=== PATIENT | male | born 1985 | race Caucasian/White ===

== ENCOUNTER 2024-05-31 15:14 | Inpatient (IN) | payer OTHER, MEDICAID, SELFPAY ==
[2024-05-31] VITALS (18 sets, daily range): BP systolic 131–157; BP diastolic 85–104; PULSE 86–115; TEMP 36.6–37.1; O2SAT 95–100; BMI 23.7; BMI 24.0
--- NOTE | 2024-05-31 15:21 | CT_ITS ---
[address] [address] Patient Name: RIOS DANIELSON MRN: [id number] date: 1985 Sex: M Assigned Patient Location: ER Current Patient Location: [facility] Accession/Order Number: [id number] Exam Date: 05/31/2024 15:35 Report Date: 05/31/2024 16:07 At the request of: NATHAN ARREAGA Procedure: CT soft tissue neck w con EXAMINATION: CT soft tissue neck w con HISTORY: throat swelling COMPARISON: No relevant comparison available. TECHNIQUE: Axial, Coronal, and Sagittal CT images created with IV contrast. Dose reduction techniques were achieved by using automated exposure control and/or adjustment of mA and/or kV according to patient size and/or use of iterative reconstruction technique. FINDINGS: NASOPHARYNX: No asymmetry of the fossae of Rosenmuller and torus tubarius. ORAL CAVITY: No visible mass. OROPHARYNX: No asymmetry of the facial and lingual tonsils. HYPOPHARYNX: No mass or other visible lesion. LARYNX: No mass or asymmetry of the vocal cords. SINUSES: No significant fluid or mucosal thickening. NECK GLANDS: No visible abnormality of the parotid, submandibular, and thyroid glands. LYMPH NODES: No pathological-appearing or enlarged lymph nodes. VASCULATURE: No suspicious abnormality. BONES: Reversal of normal lordotic curvature of the cervical spine. Mild degenerative disc disease C6-C7, C7-T1. OTHER: Large amount of free air within the mediastinum,, anterior neck, and extending to the skull base. CT/CT soft tissue neck w con IMPRESSION: 1. Marked subcutaneous emphysema within upper mediastinum and throughout the neck without appreciable tear or perforation of the visible trachea, larynx, and esophagus. Electronically authenticated by: BRANDI CABALLERO Date: 05/31/2024 16:07
--- NOTE | 2024-05-31 15:26 | ED.GENADUL1 ---
HPI HPI - General Adult General Chief complaint: Upper Respiratory Infection Stated complaint: Difficulty Swallowing Time Seen by Provider: 05/31/24 15:16 Source: patient Mode of arrival: walk-in Limitations: no limitations History of Present Illness HPI narrative: Patient is a 39-year-old male who presents to the emergency department for several hour history of throat swelling and pain. He states he feels his throat is swollen, his voice is muffled and he has pain with swallowing. He stopped to get a cup of coffee from the [employer] prior to arrival and was drinking this when the triage nurse got him from the [employer]. He states he was just at the [facility] emergency department and they did not do any testing or treatment for him. He states his symptoms began when he was chewing on his finger and vaping and he states that his primary concern is that he has developed an infection in his throat in the last hour from chewing on his finger as he was playing video games and he does not clean the controllers. He has not had any fevers or vomiting. No other upper respiratory symptoms. No medications taken prior to arrival. Related Data Home Medications ?Medication ?Instructions ?Recorded ?Confirmed No Known Home Medications 05/31/24 05/31/24 Allergies Allergy/AdvReac Type Severity Reaction Status Date / Time No Known Drug Allergies Allergy Verified 05/31/24 15:23 Opioid HPI Opioid Management Most Recent Opioid Data: No Data to Display Review of Systems ROS Constitutional Denies: fever or chills Ears, nose, mouth, and throat Reports: throat pain and difficulty swallowing; Denies: nasal congestion Respiratory Denies: shortness of breath or cough Gastrointestinal Denies: nausea or vomiting Integumentary/Breast Denies: rash Neurological Denies: headache, numbness in extremities or weakness in extremities Hematologic/Lymphatic Denies: easy bruising or easy bleeding Exam Narrative Exam Narrative: Gen.: Awake, alert, in no distress Head: Normocephalic, atraumatic ENT: Moist mucous membranes, bilateral TMs are clear, airways widely open and patent with uvula midline. No trismus or drooling. No redness or swelling under the tongue. No tonsillar edema or exudate. Patient with clear speech, tolerate his own secretions and saliva without difficulty. Respiratory: No respiratory distress Extremities: Moves extremities equally Psych: Normal mood and affect Neuro: No focal neuro deficit Skin: Warm, dry, intact Constitutional Vital Signs, click to edit/add: Last Vital Signs Temp 97.8 F 05/31/24 15:20 Pulse 86 05/31/24 16:21 Resp 18 05/31/24 16:21 BP 157/99 H 05/31/24 16:21 Pulse Ox 98 05/31/24 16:21 Course Vital Signs Vital signs: Vital Signs Temperature 97.8 F 05/31/24 15:20 Pulse Rate 115 H 05/31/24 15:20 Respiratory Rate 18 05/31/24 15:20 Blood Pressure 136/104 H 05/31/24 15:20 Pulse Oximetry 97 05/31/24 15:20 Temperature 97.8 F 05/31/24 15:20 Pulse Rate 86 05/31/24 16:21 Respiratory Rate 18 05/31/24 16:21 Blood Pressure 157/99 H 05/31/24 16:21 Pulse Oximetry 98 05/31/24 16:21 Medical Decision Making MDM Narrative Medical decision making narrative: This was sent for CT of the soft tissue of the neck, treated with Decadron for throat pain, he declined Toradol. Labs show white blood cell count 12.5, the remainder of the labs are within normal limits. CT of the soft tissue of the neck shows significant subcutaneous emphysema extending throughout the neck, patient was sent for an additional CT scan of the chest. This was reviewed by myself and pulmonology, Dr. Morton, and at this time we suspect that the patient may have popped a bleb from vape use. Recommend admitting the patient to ICU to the hospitalist, discussed with Dr. Horta and he accepted the patient for admission. Patient placed on oxygen at 6 L, admitted to ICU for further evaluation and treatment. Vital signs are stable at time of admission. SUPERVISED APC VISIT, PHYSICIAN ATTESTATION: Based on the medical record the care appears appropriate. ? Medical Records Medical records reviewed: Yes I reviewed the patient's medical records Lab Data Lab results reviewed: Yes I reviewed the patient's lab results Labs: Lab Results 05/31/24 05/31/24 Range/Units 15:31 15:32 WBC 12.5 H (4.0-11.0) 10^3/uL RBC 5.35 (4.70-6.10) 10^6/uL Hgb 16.5 (14.0-18.0) g/dL Hct 46.1 (42.0-54.0) % MCV 86.2 (80.0-94.0) fL MCH 30.8 (25.9-34.0) pg MCHC 35.8 H (29.9-35.2) g/dL RDW 12.0 (11.0-15.0) % Plt Count 292 (150-450) 10^3/uL MPV 10.7 (9.5-13.5) fL Neut % (Auto) 76.0 H (43.0-75.0) % Lymph % (Auto) 14.4 L (20.5-60.0) % [place] % (Auto) 8.7 (1.7-12.0) % Eos % (Auto) 0.1 L (0.9-7.0) % Baso % (Auto) 0.5 (0.2-2.0) % Neut # (Auto) 9.5 H (1.4-6.5) 10^3/uL Lymph # (Auto) 1.8 (1.2-3.8) 10^3/uL [place] # (Auto) 1.1 H (0.3-0.8) 10^3/uL Eos # (Auto) 0.0 (0.0-0.7) 10^3/uL Baso # (Auto) 0.1 (0.0-0.1) 10^3/uL Abs Immat Gran (auto) 0.04 H (0.00-0.03) 10^3/uL Imm/Tot Granulo (auto) 0.3 (0.0-0.5) % PT 11.4 (9.0-11.6) sec INR 1.08 Sodium 140 (136-145) mmol/L Potassium 4.1 (3.5-5.1) mmol/L Chloride 98 (98-107) mmol/L Carbon Dioxide 28.0 (21.0-32.0) mmol/L Anion Gap 18.1 BUN 5.0 L (7.0-18.0) mg/dL Creatinine 1.05 (0.70-1.30) mg/dL Est GFR ( Amer) >60 (>=60) Est GFR (Non-Af Amer) >60 (>=60) BUN/Creatinine Ratio 4.8 Glucose 109 H (74-106) mg/dL Calcium 9.7 (8.5-10.1) mg/dL Total Bilirubin 1.1 H (0.2-1.0) mg/dL AST 20 (15-37) U/L ALT 29 (16-63) U/L Alkaline Phosphatase 102 (46-116) U/L Total Protein 7.8 (6.4-8.2) g/dL Albumin 4.6 (3.4-5.0) g/dL Globulin 3.2 g/dL Albumin/Globulin Ratio 1.4 Streptococcus Screen Negative Imaging Data ct neck: Attestation: I have reviewed the pertinent imaging results. Radiologist's impression: ITS Impressions Soft Tissue Neck CT 05/31/24 15:21 IMPRESSION: 1. Marked subcutaneous emphysema within upper mediastinum and throughout the neck without appreciable tear or perforation of the visible trachea, larynx, and esophagus. Electronically authenticated by: BRANDI CABALLERO Date: 05/31/2024 16:[address] 05/31/24 16:10 IMPRESSION: 1. Large amount of soft tissue emphysema in the neck and pneumomediastinum, correlate clinically. 2. No other acute abnormalities in the chest. Electronically authenticated by: CASANDRA CISSE Date: 05/31/2024 17:02 Discharge Plan Discharge Chief Complaint: Upper Respiratory Infection Time of Disposition Decision: 17:28 Prescriptions / Home Meds: No Action No Known Home Medications Print Language: Slovak
[2024-05-31 15:38] LABS: Basophils Absolute Auto 0.1 10^3/uL (0.0-0.1); Basophils Percent Auto 0.5 % (0.2-2.0); Eosinophils Percent Auto 0.1 % (0.9-7.0); Hematocrit 46.1 % (42.0-54.0); Hemoglobin 16.5 g/dL (14.0-18.0); Immature Granulocytes Abs Auto 0.04 10^3/uL (0.00-0.03); Immature Granulocytes Pct Auto 0.3 % (0.0-0.5); Lymphocytes Absolute Auto 1.8 10^3/uL (1.2-3.8); Lymphocytes Percent Auto 14.4 % (20.5-60.0); Mean Corpuscular HGB Conc 35.8 g/dL (29.9-35.2); Mean Corpuscular Hemoglobin 30.8 pg (25.9-34.0); Mean Corpuscular Volume 86.2 fL (80.0-94.0); Mean Platelet Volume 10.7 fL (9.5-13.5); Monocytes Absolute Auto 1.1 10^3/uL (0.3-0.8); Monocytes Percent Auto 8.7 % (1.7-12.0); Neutrophils Absolute Auto 9.5 10^3/uL (1.4-6.5); Platelet Count 292 10^3/uL (150-450); Red Blood Count 5.35 10^6/uL (4.70-6.10); White Blood Count 12.5 10^3/uL (4.0-11.0)
[2024-05-31 15:48] LABS: Internal Control Within Normal Limits; Strep A Antigen Screen Negative
[2024-05-31] MEDS: DEXAMETHASONE SOD PHOS 10 MG/ML VIAL IV (15:49)
--- NOTE | 2024-05-31 16:10 | CT_ITS ---
[address] [address] Patient Name: RIOS DANIELSON MRN: [id number] date: 1985 Sex: M Assigned Patient Location: ER Current Patient Location: Accession/Order Number: [id number] Exam Date: 05/31/2024 16:32 Report Date: 05/31/2024 17:02 At the request of: NATHAN ARREAGA Procedure: CT chest wo con EXAM: CT scan of the chest without contrast. Dose reduction technique used: Automated exposure control and/or adjustment of the mA and/or kV according to patient size and/or use of iterative reconstruction technique. REASON FOR EXAM: subq emphysema COMPARISON: CT scan of the neck from today FINDINGS: Large amount soft tissue emphysema neck and pneumomediastinum. No acute airspace opacities. No pneumothorax. No pleural effusion. No acute fractures. No concerning pulmonary nodules. No definite lymphadenopathy in the chest. No definite coronary atherosclerotic calcifications. Old sternal fracture. Remainder unremarkable. CT/CT chest wo con IMPRESSION: 1. Large amount of soft tissue emphysema in the neck and pneumomediastinum, correlate clinically. 2. No other acute abnormalities in the chest. Electronically authenticated by: CASANDRA CISSE Date: 05/31/2024 17:02
[2024-05-31 16:33] LABS: INR 1.08; Prothrombin Time 11.4 sec (9.0-11.6)
[2024-05-31 16:36] LABS: Alanine Aminotransferase 29 U/L (16-63); Albumin Globulin Ratio 1.4; Albumin Level 4.6 g/dL (3.4-5.0); Alkaline Phosphatase 102 U/L (46-116); Anion Gap 18.1; Aspartate Amino Transferase 20 U/L (15-37); BUN Creatinine Ratio 4.8; Bilirubin Total 1.1 mg/dL (0.2-1.0); Calcium 9.7 mg/dL (8.5-10.1); Chloride 98 mmol/L (98-107); Estimated GFR (African America >60 (>=60); Estimated GFR (Non-African Ame >60 (>=60); Globulin 3.2 g/dL; Glucose 109 mg/dL (74-106); Potassium 4.1 mmol/L (3.5-5.1); Sodium 140 mmol/L (136-145); Total Protein 7.8 g/dL (6.4-8.2)
--- NOTE | 2024-05-31 17:41 | PM.PLCN ---
History of Present Illness History of Present Illness Consult date: 05/31/24 Requesting physician: Chay Horta Reason for consult: other (Pneumomediastinum) Narrative: 39yo male presents to the emergency room with fullness in his neck. The initial history began after he said he experienced the neck swelling and pain after playing video game chewed on his thumb. However on further investigation, he admits that he was attempting to smoke an electronic cigarette, but it was empty. He set the dial to the strongest setting and inhaled deeply, it was at this time he experienced his symptoms. He initially went to [facility] for evaluation, and he claims no workup was done. He then came to [facility] for evaluation. A neck CT was obtained which showed a large amount of free air. This was followed up by a chest CT which noted marked pneumomediastinum. He denies any prior history of pneumothorax. There is no family history of spontaneous pneumothoraces. His grandma has emphysema. He has no personal history of asthma or COPD. He had a longstanding history of cigarette smoking. He states he is attempting to transition over to vaping, though he did smoke a pack of cigarettes yesterday. He smokes marijuana daily. Denies any crack cocaine. Review of Systems ROS Status of ROS 10 or more systems reviewed and unremarkable except as noted in history and below Ears, nose, mouth, and throat Reports: throat swelling Meds Home Medications and Allergies Home Medications ?Medication ?Instructions ?Recorded ?Confirmed ?Type No Known Home Medications 05/31/24 05/31/24 History Allergies Allergy/AdvReac Type Severity Reaction Status Date / Time No Known Drug Allergies Allergy Verified 05/31/24 15:23 Exam Constitutional Vital Signs, click to edit/add: Last Vital Signs Temp 97.8 F 05/31/24 15:20 Pulse 98 H 05/31/24 17:28 Resp 18 05/31/24 17:28 BP 132/93 H 05/31/24 17:28 Pulse Ox 100 05/31/24 17:28 O2 Del Method Nasal Cannula 05/31/24 17:28 O2 Flow Rate 6 05/31/24 17:28 Documenting provider has reviewed patient's vital signs: yes Common normals: no apparent distress and average body habitus General appearance: cooperative and comfortable; not in distress [facility] Common normals: normocephalic Mouth: oral and palatal mucosa normal Neck & C-Spine General: trachea midline, tenderness and other (mild subcutaneous emphysema palpated) Chest Chest: crepitus and tenderness Chest images (male): 1. Tenderness, mild subcutaneous emphysema palpated Respiratory Common normals: normal respiratory effort and no use of accessory muscles Effort & inspection: no respiratory distress Auscultation: diminished lung sounds bilateral throughout; no crackles, no rhonchi and no wheezes Cardio Common normals: no JVD, regular rate and regular rhythm GI Inspection: normal to inspection Extremity Common normals: normal to inspection Neuro Common normals: oriented x3 Psych Speech: normal speech Attention/concentration: attention grossly intact Insight: fair (Discussed smoking/marijuana & pneumothorax risk - I'm not giving that up! ) Results Laboratory Findings ABG, PT/INR, D-dimer: PT/INR, D-dimer PT 11.4 sec (9.0-11.6) 05/31/24 15:31 INR 1.08 05/31/24 15:31 Abnormal lab findings: Abnormal Labs 05/31/24 15:31 WBC 12.5 H MCHC 35.8 H Neut % (Auto) 76.0 H Lymph % (Auto) 14.4 L Eos % (Auto) 0.1 L Neut # (Auto) 9.5 H [place] # (Auto) 1.1 H Abs Immat Gran (auto) 0.04 H BUN 5.0 L Glucose 109 H Total Bilirubin 1.[address] scan - chest: report reviewed Additional studies: Neck CT 05/31/2024: Marked subcutaneous emphysema within upper mediastinum and throughout the neck without appreciable tear or perforation of the visible trachea, larynx, and esophagus. Chest CT 05/31/2024: Large amount of soft tissue emphysema in the neck and pneumomediastinum Assessment and Plan Assessment and Plan (1) Pneumomediastinum: Assessment and Plan: Pneumomediastinum noted on neck and chest CT 05/2024. Patient's presentation would be most consistent with a ruptured bleb or bulla, suspected in the left apex, secondary to vaping/cigarettes/marijuana smoking. Pneumomediastinum is quite extensive. Treatment for this is supportive care. As with pneumothorax, recommend O2 @ 6L/min for nitrogen washout - add humidity for comfort. Monitor for development of worsening pneumothorax with serial CXR. He was counseled to NEVER smoke ANYTHING ever again! (2) Pneumothorax: Assessment and Plan: I personally reviewed the imaging. I feel that there is a very tiny left apical pneumothorax (axial view image no. 21). Suspect there was a bleb or bulla that ruptured when patient took a strong puff from his vape pen. As there is no significant air pocket, there is no indication for a chest tube. As above, continue O2 for N2 washout, repeat CXR in AM. He was advised to let nursing know VLADIMIR if he experiences abrupt chest pain or dyspnea. Will check for alpha-1 antitrypsin deficiency. Ordering genotype and level. I counseled the patient on the importance of smoking cessation, especially with pneumothoroax/mediastinum. The risk of recurrent pneumothorax is ~50% within 1 year if he continues to smoke. The Valsalva maneuvers used during marijuana smoking increases the risk even further. He laughed and stated that I'm not giving that up! I retorted that I am serious and this can reoccur with continued smoking of anything. Qualifiers: Pneumothorax type: spontaneous, secondary Qualified Code(s): J93.12 - Secondary spontaneous pneumothorax (3) Subcutaneous emphysema: Assessment and Plan: Secondary to #1/2. Supportive care. Qualifiers: Encounter type: initial encounter Qualified Code(s): T79.7XXA - Traumatic subcutaneous emphysema, initial encounter (4) Marijuana abuse: Assessment and Plan: Counseled on importance of smoking cessation, especially marijuana given the Valsalva maneuvers utilized. (5) Cigarette nicotine dependence with nicotine-induced disorder: Assessment and Plan: He was counseled on smoking cessation of any cigarettes or vaping. Plan Patient was seen in ER. Case was discussed with Dr. Horta and BERNABE Soto.
--- NOTE | 2024-05-31 18:15 | P.HP_ITS ---
HPI H&P: HPI History of Present Illness Narrative: Presented to the emergency room after a visit with an outside hospital, he presented there because he felt a strange feeling in his neck and was afraid he had an infection. There initial screening did not demonstrate anything and recommended he follow-up with his primary care provider because he felt symptoms were not improving he presented here. Here we have patient was found to have mediastinal air with free air up into the neck. CT scan did not demonstrate any esophageal tear which. Patient has been vaping more lately. Consultation with pulmonology and the feeling at this point is he probably had a small bleb that ruptured. When I saw patient in the emergency room, he was in the cot resting comfortably, denies any pain just a strange sensation up into his neck. Denies fever chills nausea vomiting. Opioid HPI Opioid Management Most Recent Pain and Opioid Data: No Data to Display Review of Systems ROS Status of ROS 10 or more systems reviewed and unremark able except as noted in history and below Meds Home Medications and Allergies Home Medications ?Medication ?Instructions ?Recorded ?Confirmed ?Type No Known Home Medications 05/31/24 05/31/24 History Allergies Allergy/AdvReac Type Severity Reaction Status Date / Time No Known Drug Allergies Allergy Verified 05/31/24 15:23 Exam Constitutional Vital Signs, click to edit/add: Last Vital Signs Temp 97.8 F 05/31/24 15:20 Pulse 100 H 05/31/24 18:00 Resp 18 05/31/24 18:00 BP 144/101 H 05/31/24 18:00 Pulse Ox 99 05/31/24 18:00 O2 Del Method Nasal Cannula 05/31/24 17:28 O2 Flow Rate 6 05/31/24 18:00 Documenting provider has reviewed patient's vital signs: yes Common normals: no apparent distress Neck & C-Spine Common normals: full ROM and supple Other: Mild crepitus noted on exam Chest Common normals: inspection of chest normal; palpation of chest abnormal (Mild crepitus noted) Respiratory Common normals: normal respiratory effort and no retractions Cardio Common normals: regular rate and regular rhythm GI Common normals: Normal to inspection, nondistended, normoactive bowel sounds present, soft to palpation and non-tender Results Labs Labs: Short CBC 05/31/24 Range/Units 15:31 WBC 12.5 H (4.0-11.0) 10^3/uL Hgb 16.5 (14.0-18.0) g/dL Hct 46.1 (42.0-54.0) % Plt Count 292 (150-450) 10^3/uL BMP 05/31/24 15:31 Sodium 140 Potassium 4.1 Chloride 98 Carbon Dioxide 28.0 BUN 5.0 L Creatinine 1.05 Glucose 109 H Calcium 9.7 Liver Function 05/31/24 Range/Units 15:31 Total Bilirubin 1.1 H (0.2-1.0) mg/dL AST 20 (15-37) U/L ALT 29 (16-63) U/L Alkaline Phosphatase 102 (46-116) U/L Albumin 4.6 (3.4-5.0) g/dL Assessment and Plan Assessment and Plan (1) Pneumomediastinum: (2) Pneumothorax: Qualifiers: Pneumothorax type: spontaneous, secondary Qualified Code(s): J93.12 - Secondary spontaneous pneumothorax (3) Subcutaneous emphysema: Qualifiers: Encounter type: initial encounter Qualified Code(s): T79.7XXA - Traumatic subcutaneous emphysema, initial encounter (4) Marijuana abuse: (5) Cigarette nicotine dependence with nicotine-induced disorder: Plan Admission findings: Patient is elevated blood pressure, sinus tachycardia, leukocytosis, CT scan consistent with likely ruptured pulmonary bleb with now free air up in the mediastinum and up into the neck. No obstruction of the airway. Concern for progression. Place patient in ICU . Acute free air in mediastinum and up into the neck. Likely secondary to ruptured bleb. Monitor patient closely in the ICU. Plan for chest tube if develops obvious pneumothorax. Nasal cannula oxygen at 6 L and chest x-ray daily Leukocytosis likely demargination-secondary to the above, no signs of infection at this point in time Sinus tachycardia likely secondary to the above-monitor Blood pressure elevated. Has taken clonidine in the past. Will start with that at at bedtime. Patient states in the past he took it once a day at bedtime and improved his control Admission status: Mediastinal free air and free air up into the neck. Concern for worsening condition up into the neck and possible acute pneumothorax. Place patient in the intensive care unit. Greater than 50% chance he will need to stay [address] patient inpatient.
[2024-05-31] MEDS: LORAZEPAM 2 MG/ML VIAL 0.5 MG IV (18:24)
--- NOTE | 2024-05-31 19:02 | PC.NURSE ---
Patient report called to Lilia COLEMAN in ICU. no questions with report. Asked if we would bring him up in about 10 minutes. Bedside report given to Gladis COLEMAN and she will take him up when she gets a chance.
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
[2024-05-31] MEDS: NICOTINE 21 MG PATCH.TD24 TD (20:05)
[2024-05-31] MEDS: CLONIDINE HCL 0.1 MG TABLET PO (21:49)
[2024-06-01] VITALS (62 sets, daily range): BP systolic 124–131; BP diastolic 68–95; PULSE 95–97; TEMP 36.6–37.2; O2SAT 97–100
--- NOTE | 2024-06-01 06:00 | XR_ITS ---
[address] [address] Patient Name: RIOS DANIELSON MRN: [id number] date: 1985 Sex: M Assigned Patient Location: ICU Current Patient Location: ICU Accession/Order Number: [id number] Exam Date: 06/01/2024 05:48 Report Date: 06/01/2024 07:48 At the request of: JALEN HEADLEY Procedure: XR chest 1V EXAMINATION: XR chest 1V HISTORY: Pneumomediastinum COMPARISON: CT chest 05/31/2024 FINDINGS: LUNGS: Mild opacity within left lateral lung base. VASCULATURE: No increased pulmonary vasculature. PLEURA: No pneumothorax, effusion, or pleural thickening. CARDIAC: No cardiomegaly or cardiac silhouette abnormality. MEDIASTINUM: Free air within mediastinum seen adjacent the aortic arch. BONES: No fracture or visible bone lesion. OTHER: Free air within visible lower neck. XR/XR chest 1V IMPRESSION: 1. Persistent pneumomediastinum and subcutaneous emphysema. 2. Mild lingular atelectasis versus infiltrates. Electronically authenticated by: BRANDI CABALLERO Date: 06/01/2024 07:48
[2024-06-01] MEDS: BENZONATATE 100 MG CAPSULE 200 MG PO (06:40)
[2024-06-01] MEDS: LORAZEPAM 0.5 MG TABLET 0.25 MG PO (06:40)
--- OUTSIDE RECORDS SUMMARY | 2024-06-01 07:44 | XMS_ITS | CCD ---
Author Organization [facility] Inform ion Partnership [facility] [place] [facility] Care Team Providers Care Stile Ripsaw Operator Name Role Phone NO FAMILY, PHYSICIAN Primary Care Provider Unava ilable RU Herrera Emergency Provider Belen Herrera Attending Unavailable Belen Herrera Admitting Unavailable NO FAMILY, PHYSICIAN Primary Care Unavailable RU Burns Emergency Provider Medications Current Medications Medication Drug Class(es) Dates Sig (Normalized) Sig (Original) cyclobenzaprine hydrochloride 10 mg oral tablet (2 sources) Muscle Relaxant Start: 05-09-2024 take 10 mg by mouth three times daily Cyclobenzaprine Active 10 MG PO Three times daily May 09, 2024 12:00am doxycycline hyclate 100 mg oral capsule (2 sources) Tetracycline-cl ass Drug Start: 05-09-2024 take 100 mg by mouth twice daily Doxycycline Hyclate Active 100 MG PO Twice daily 13 May 09, 2024 12:00am Problems Problem Classification Problem Date Documented Date Episodic/Chronic Immunizations and screening for infectious disease (3 sources) Patient encounter status; Translations: [Contact with and (suspected) exposure to infections with a predominantly sexual mode of transmission] 05-09-2024 Episodic Other non-traumatic joint disorders (1 source) Pain in left shoulder; Translations: [Pain in left shoulder] Onset: 05-09-2024 Episodic Sprains and strains (2 sources) Shoulder strain; Translations: [Strain of unspecified muscle, fascia and tendon at shoulder and upper arm level, left arm, initial encounter] 05-09-2024 Episodic Results Test Name Value Interpretation Reference Range Facility Bacteria [Presence] in Urine by AutomatedOrdered By: Belen Herrera on 05-09-2024 Bacteria Auto Ql (U) 2+ [HPF] High None Seen [facility] Bilirubin Test strip Ql (U)O rdered By: Belen Herrera on 05-09-2024 Bilirubin Ql (U) Negative Negative [facility] Chlamydia trachomatis DNA [P resence] in Specimen by CARLY with probe detectionOrdered By: Belen Herrera on 05-09-2024 C. trachomatis DNA CARLY+probe Ql (Unsp spec) Negative Negative [facility] Chlamydia/GC/Trich NAAon Chlamydia Trachomotis, CARLY Negative Normal Negative [facility] Comment on above: Performed By: #### G CCHLAMTRI #### [facility] , Neisseria Gonorrhoeae, CARLY Negative Normal Negative [facility] Comment on above: Performed By: #### G CCHLAMTRI #### [facility] , Trichomonas CARLY Negative Normal Negative [facility] Comment on above: Result Comment: Perf ormed at: =G - [facility] [address] [id number] Screen Printing Stencil Preparer: Myrna Espinoza MD, Phone: [phone] PERFORMED BY: [place] [address] PATHOLOGIST CONSULTING SERVICES MANAGER DEYSI MIRANDA M.D. Performed By: #### G CCHLAMTRI #### [facility] , Color of Urine by AutoOrdere d By: Belen Herrera on 05-09-2024 Color (U) Colorless Yellow [facility] Comment on above: Order Comment: Name Collection Type:: Clean-Voided Midstream Performed By: #### A DDONUAPLUS, CUU #### [facility] [address] [place] [address] [place] Dipstick and Microscopicon 0 05-09-2024 Bacteria,Urine 2+ High None Seen [facility] Comment on above: Order Comment: Name Collection Type:: Clean-Voided Midstream Performed By: #### A DDONUAPLUS, CUU #### [facility] [address] [place] [address] [place] Bilirubin,Urine Negative Normal Negative [facility] Comment on above: Order Comment: Name Collection Type:: Clean-Voided Midstream Performed By: #### A DDONUAPLUS, CUU #### [facility] [address] Glucose Ql (U) Normal Normal Normal [facility] Comment on above: Order Comment: Name Collection Type:: Clean-Voided Midstream Performed By: #### A DDONUAPLUS, CUU #### [place] [address] [place] Hyaline Casts,Urine None Normal 0-8 [facility] Comment on above: Order Comment: Name Collection Type:: Clean-Voided Midstream Result Comment: PERF ORMED BY: [place] [address] PATHOLOGIST CONSULTING SERVICES MANAGER DEYSI MIRANDA M.D. Performed By: #### A DDONUAPLUS, CUU #### [place] [address] [place] Nitrite,Urine Positive High Negative [facility] Comment on above: Order Comment: Name Collection Type:: Clean-Voided Midstream Performed By: #### A DDONUAPLUS, CUU #### [place] [address] [place] Occult Blood,Urine Negative Normal Negative [facility] Comment on above: Order Comment: Name Collection Type:: Clean-Voided Midstream Result Comment: PERF ORMED BY: [place] [address] PATHOLOGIST CONSULTING SERVICES MANAGER DEYSI MIRANDA M.D. Performed By: #### A DDONUAPLUS, CUU #### [place] [address] [place] Protein,Urine Negative Normal Negative [facility] Comment on above: Order Comment: Name Collection Type:: Clean-Voided Midstream Performed By: #### A DDONUAPLUS, CUU #### [place] [id number] [place] RBC,Urine None Seen Normal 0-4 [facility] Comment on above: Order Comment: Name Collection Type:: Clean-Voided Midstream Performed By: #### A DDONUAPLUS, CUU #### [address] Specificy [place],Urine 1.004 Normal 1.001-1.030 [facility] Comment on above: Order Comment: Name Collection Type:: Clean-Voided Midstream Performed By: #### A DDONUAPLUS, CUU #### [address] Urobilinogen,Urine Normal Normal Normal [facility] Comment on above: Order Comment: Name Collection Type:: Clean-Voided Midstream Performed By: #### A DDONUAPLUS, CUU #### [address] WBC,Urine 3-4 Normal 0-4 [facility] Comment on above: Order Comment: Name Collection Type:: Clean-Voided Midstream Performed By: #### A DDONUAPLUS, CUU #### [address] Epithelial cells.squamous [# /area] in Urine sediment by Automated countOrdered By: Belen Herrera on 05-09-2024 Epithelial cells.squamous Auto (Urine sed) [#/Area] N/A [facility] Erythrocytes [#/area] in Uri ne sediment by Automated countOrdered By: Belen Herrera on 05-09-2024 RBC Auto (Urine sed) [#/Area] None seen [HPF] 0-4 [facility] Glucose [Mass/volume] in Uri ne by Test stripOrdered By: Belen Herrera on 05-09-2024 Glucose Test strip (U) [Mass/Vol] Normal mg/dL Normal [facility] Hemoglobin Test strip Ql (U) Ordered By: Belen Herrera on 05-09-2024 Hemoglobin Ql (U) Negative Negative [facility] Hyaline casts [#/area] in Ur ine sediment by Automated countOrdered By: Belen Herrera on 05-09-2024 Hyaline casts Auto (Urine sed) [#/Area] None [LPF] 0-8 [facility] Ketones [Presence] in Urine by Test stripOrdered By: Belen Herrera on 05-09-2024 Ketones Ql (U) Negative Negative [facility] Comment on above: Order Comment: Name Collection Type:: Clean-Voided Midstream Performed By: #### A DDONUAPLUS, CUU #### [facility] [address] [place] [address] [place] Leukocyte esterase [Presence ] in Urine by Test stripOrdered By: Belen Herrera on 05-09-2024 Leukocyte esterase Test strip Ql (U) 1+ High Negative [facility] Comment on above: Order Comment: Name Collection Type:: Clean-Voided Midstream Performed By: #### A DDONUAPLUS, CUU #### [facility] [address] [place] [address] [place] Leukocytes [#/area] in Urine sediment by Automated countOrdered By: Belen Herrera on 05-09-2024 WBC Auto (Urine sed) [#/Area] 3-4 [HPF] 0-4 [facility] Neisseria gonorrhoeae DNA [P resence] in Specimen by CARLY with probe detectionOrdered By: Belen Herrera on 05-09-2024 N. gonorrhoeae DNA CARLY+probe Ql (Unsp spec) Negative Negative [facility] Nitrite Test strip Ql (U)Ord ered By: Belen Herrera on 05-09-2024 Nitrite Ql (U) Positive High Negative [facility] Protein Test strip (U) [Mass /Vol]Ordered By: Belen Herrera on 05-09-2024 Protein (U) [Mass/Vol] Negative Negative [facility] Specific gravity Test strip (U) [Rel density]Ordered By: Belen Herrera on 05-09-2024 Specific gravity (U) [Rel density] 1.004 1.001-1.030 [facility] Trichomonas vaginalis DNA [P resence] in Specimen by CARLY with probe detectionOrdered By: Belen Herrera on 05-09-2024 T. vaginalis DNA CARLY+probe Ql (Unsp spec) Negative Negative [facility] Comment on above: Performed at: =[address]Ch[address], [place] [id number] Director: Myrna Espinoza MD, Phone: [phone] Urine Cultureon 05-09-2024 Bacteria identified Cx Nom (U) ORGANISM: Klebsiella pneumoniae (O:KLEPNE) [place] Count >100,000 Aerobic SHELLEY Charge (NMIC56) --- SUSCEPTIBILITY -- ORGANISM: O:KLEPNE ANTIBIOTIC INTERPRETATION SHELLEY Amikacin S <16 Amoxacillin/K Clavulanate R >16 Ampicillin/Sulbactam R >16 Aztreonam S <4 Cefazolin R >16 Cefepime S <2 Ceftazidime S <1 Ceftazidime/Avibactam S <4 Ceftolozane/Tazobactam S <2 Ceftriaxone S <1 Cefuroxime S <4 Ciprofloxacin S <0.25 Ertapenem S <0.5 Gentamicin S <2 Levofloxacin S <0.5 Meropenem S <1 Meropenem/Vaborbactam S <2 Nitrofurantoin I 64 Piperacillin/Tazobacta m R >64 Tetracycline S <4 Tigecycline S <2 Tobramycin S <2 Trimethoprim/Sulfameth oxazole S <0.5 S = SUSCEPTIBLE I = INTERMEDIATE R = RESISTANT BLANK = DATA NOT AVAILABLE, OR DRUG NOT ADVISABLE OR TESTED R* = RESISTANCE DUE TO EXTENDED SPECTRUM BETA-LACTAMASES ESBL = EXTENDED SPECTRUM BETA-LACTAMASE TFG = THYMIDINE-DEPENDENT STRAIN LUMA = BETA-LACTAMASE POSITIVE IB = INDUCIBLE BETA-LACTAMASE. APPEARS IN PLACE OF 'S' WITH SPECIES KNOWN TO POSSESS INDUCIBLE BETA-LACTAMASES. POTENTIALLY THEY MAY BECOME RESISTANT TO ALL B-LACTAM DRUGS. PERFORMED BY: [facility] [address] [place] [address] PATHOLOGIST CONSULTING SERVICES MANAGER DEYSI MIRANDA M.D. Normal [facility] Comment on above: Performed By: #### A CHANTAL HINKLE #### [facility] [address] Urine appearanceOrdered By: Belen Herrera on 05-09-2024 Appearance (U) Clear Clear [facility] Comment on above: Order Comment: Name Collection Type:: Clean-Voided Midstream Performed By: #### A ARIN CUU #### [address] Urine culture routineOrdered By: Belen Herrera on 05-09-2024 Bacteria identified Cx Nom (U) Klebsiella pneumoniae Abnormal [facility] Urobilinogen Test strip (U) [Mass/Vol]Ordered By: Belen Herrera on 05-09-2024 Urobilinogen (U) [Mass/Vol] Normal mg/dL Normal [facility] XR shoulder LT min 2V*on XR shoulder LT min 2V* [facility] Main [place] [address] [place] [address] XRay Report Signed Patient: Severiano Taveras JR MR#: [id number] : 1985 Acct:[id number] Age/Sex: 39 / M ADM Date: 05/09/24 Loc: ER Room: Type: [facility] ER Attending Dr: Copies to: Belen Herrera APRN Ordering Provider: Belen Herrera APRN Date of Service: 05/09/24 XR/XR shoulder LT min 2V*: Extremity Injury, Upper XR shoulder LT min 2V* 05/09/2024 9:59 AM SIGNS AND SYMPTOMS: Injury to left shoulder PROTOCOL: Frontal, Grashey, and scapular Y views of the left shoulder COMPARISON: None FINDINGS: The glenohumeral joint and acromioclavicular joints are preserved. There is no evidence of fracture or dislocation. The visualized left hemithorax is grossly intact. XR/XR shoulder LT min 2V* IMPRESSION: No fracture or dislocation. No significant degenerative change. Impression dictated by: Juan M Alcocer M.D.05/09/2024 10:57 AM Dictation Location: [place] [address] Transcribed By: JOSIAH 05/09/24 1057 Dictated By: Juan M Alcocer II, MD 05/09/24 1056 Signed By: 05/09/24 1057 Normal [facility] pH of Urine by Test stripOrd ered By: Belen Herrera on 05-09-2024 pH (U) 7.0 [pH] 5.0-9.0 [facility] Comment on above: Order Comment: Name Collection Type:: Clean-Voided Midstream Performed By: #### A CHANTAL HINKLE #### [address] Vital Signs Date Time Vital Sign Value Performing Clinician Napoleon lity 05-31-2024 13:28-0400 Body height 180.34 cm PHYSICIAN NO [facility] 05-31-2024 13:28-0400 Body temperature 99.1 [degF] PHYSICIAN NO [facility] 05-31-2024 13:28-0400 Body weight 78.35 kg PHYSICIAN NO [facility] 05-31-2024 13:28-0400 Diastolic blood pressure 84 mm[Hg] PHYSICIAN NO [facility] 05-31-2024 13:28-0400 Heart rate 120 /min PHYSICIAN NO [facility] 05-31-2024 13:28-0400 Respiratory rate 20 /min PHYSICIAN NO [facility] 05-31-2024 13:28-0400 SaO2% (BldA) [Mass fraction] 98 % PHYSICIAN NO [facility] 05-31-2024 13:28-0400 Systolic blood pressure 158 mm[Hg] PHYSICIAN NO [facility] 05-09-2024 09:10-0400 Body temperature 97.8 [degF] PHYSICIAN NO [facility] 05-09-2024 09:10-0400 Diastolic blood pressure 90 mm[Hg] PHYSICIAN NO [facility] 05-09-2024 09:10-0400 Heart rate 106 /min PHYSICIAN NO [facility] 05-09-2024 09:10-0400 Respiratory rate 18 /min PHYSICIAN NO [facility] 05-09-2024 09:10-0400 SaO2% (BldA) [Mass fraction] 98 % PHYSICIAN NO [facility] 05-09-2024 09:10040 Systolic blood pressure 134 mm[Hg] PHYSICIAN NO [facility] 05-09-2024 09:08040 Body height 180.34 cm PHYSICIAN NO [facility] 05-09-2024 09: Body weight 83.9 kg PHYSICIAN NO [facility] Encounters Encounter Date Encounter Type Care Provider Facility Start: 05-31-2024 End: 05-31-2024 Emergency department patient visit PHYSICIAN NO [facility] Work Phone: Start: 05-09-2024 End: 05-09-2024 Emergency department patient visit PHYSICIAN NO [facility] Work Phone: Procedures Date Procedure Procedure Detail Performing Clinician Start: 05-09-2024 Urine culture PHYSICIAN NO FAMILY Start: 05-09-2024 Plain X-ray of left shoulder PHYSICIAN NO FAMILY Plan of Treatment Date Care Activity Detail Author Start: 05-09-2024 Bacteria identified in Urine by Culture [facility] Start: 05-09-2024 [facility] Chlamydia trachomati s DNA [Presence] in Unspecified specimen by CARLY with probe detection [facility] Neisseria gonorrhoea e DNA [Presence] in Unspecified specimen by CARLY with probe detection [facility] Patient Education Muscle Strain ED Sexually Transmitted Infections ED [facility] Work Phone: Patient referral [facility] Work Phone: Trichomonas vaginali s DNA [Presence] in Unspecified specimen by CARLY with probe detection [facility] Payers Date Payer Category Payer Self-pay 2024 Unknown [id number] Medicaid [employer] [place] Medicaid [id number] Unknown [id number] Social History Date Type Detail Facility Start: 05-09-2024 End: 05-31-2024 Tobacco smoking status NHIS Smoker (finding) [facility] Start: 1985 Sex Assigned At Male F [facility] Evaluation note Note Date & Type Note Facility Evaluation note No assessment information availa ble [facility] Work Phone: Hospital Discharge instructions Note Date & Type Note Facility Hospital Discharge instructions Additional Instructions Take Flexeril 3 times a day as needed for muscle spasms, do not drink, drive, operate heavy machinery while taking Alternate Tylenol and ibuprofen as needed for pain Take doxycycline twice a day for 7 days We will call you in 3 days if the results of her STD testing is positive, however, you did receive treatment today Return to the emergency room for fever chills, abdominal pain or inability to urinate, worsened left shoulder pain or other concerns [facility] Work Phone: Chief Complaint and Reason for Visit Chief Complaint Left shoulder and ar m pain Chief Complaint Left shoulder and ar m pain swollen throat Advance Directives Advance Directive Response Recorded Date/ Time Advance Directives No May 09, 2024 9:30am Summary Purpose Family History No Family History Records Found Additional Source Comments Care Teams (unrecognized sec tion and content) Team Status: Active Member Role Status Dates PHYSICIAN NO FAMILY Primary Care Provider Active Team Status: Inactive Member Role Status Dates PHYSICIAN NO FAMILY Primary Care Provider Active Start: May 09, 2024 End: May 09, 2024 Belen Herrera APRN Emergency Provider Active Start: May 09, 2024 End: May 09, 2024 Team Status: Inactive Member Role Status Dates PHYSICIAN NO FAMILY Primary Care Provider Active Start: May 31, 2024 End: May 31, 2024 Gomez Burns APRN Emergency Provider Active Start: May 31, 2024 End: May 31, 2024 Goals (unrecognized section and content) Goals may be documented in a n alternate sectionGoals may be documented in an alternate section (unrecognized sect ion and content) No Status Records Found INFORMATION SOURCE (unrecogn ized section and content) DATE CREATED AUTHOR 05/30/2024 [facility] FOR RECORDS PERTAINING TO PATIENTS WHO ARE OR HAVE BEEN ENROLLED IN A CHEMICAL DEPENDENCY/SUBSTANCEABUSE PROGRAM, SOME INFORMATION MAY BE OMITTED. This clinical summary was aggregated from multiple sources. Caution should be exercised in using it in the provision of clinical care. This summary normalizes information from multiple sources, and as a consequence, information in this document may materially change the coding, format and clinical context of patient data. In addition, data may be omitted in some cases. CLINICAL DECISIONS SHOULD BE BASED ON THE PRIMARY CLINICAL RECORDS. [email or web address]. provides no warranty or guarantee of the accuracy or completeness of information in this document.
--- NOTE | 2024-06-01 07:46 | CM.NOTE ---
Rounds made with Dr. Horta, pt will discharge to home today after Dr. Morton evaluates pt. No discharge needs identified.
--- OUTSIDE RECORDS SUMMARY | 2024-06-01 07:48 | XMS_ITS | CCD ---
Author Organization [facility] Inform ion Partnership [facility] Care Team Providers Care Bin Worker Name Role Phone NO FAMILY, PHYSICIAN Primary Care Provider Unava ilable RU Herrera Emergency Provider [phone] Belen Herrera Attending Unavailable Belen Herrera Admitting [...] Ql (U) 2+ [HPF] High None Seen [facility] Bilirubin Test strip Ql (U)O rdered By: Belen Herrera on 05-09-2024 Bilirubin Ql (U) Negative Negative [facility] Chlamydia trachomatis DNA [P resence] in Specimen by CARLY with probe detectionOrdered By: Belen Herrera on 05-09-2024 C. trachomatis DNA CARLY+probe Ql (Unsp spec) Negative Negative [facility] Chlamydia/GC/Trich NAAon Chlamydia Trachomotis, CARLY Negative Normal Negative [facility] Comment on above: Performed By: #### G CCHLAMTRI #### [facility] , Neisseria Gonorrhoeae, CARLY Negative Normal Negative [facility] Comment on above: Performed By: #### G CCHLAMTRI #### [facility] , Trichomonas CARLY Negative Normal Negative [facility] Comment on above: Result Comment: Perf ormed at: =G - [facility] [address] [id number] [place] Operator: Myrna Espinoza MD, Phone: [phone] PERFORMED BY: [place] [address] PATHOLOGIST FISCAL SERVICES DIRECTOR DEYSI MIRANDA M.D. Performed By: #### G CCHLAMTRI #### [facility] , Color of Urine by AutoOrdere d By: Belen Herrera on 05-09-2024 Color (U) Colorless Yellow [facility] Comment on above: Order Comment: Name Collection Type:: Clean-Voided Midstream Performed By: #### A DDONUAPLUS, CUU #### [facility] [address] [place] [address] [place] Dipstick and Microscopicon 0 05-09-2024 Bacteria,Urine 2+ High None Seen [facility] Comment on above: Order Comment: Name Collection Type:: Clean-Voided Midstream Performed By: #### A DDONUAPLUS, CUU #### [facility] [address] [place] [address] [place] Bilirubin,Urine Negative Normal Negative [facility] Comment on above: Order Comment: Name Collection Type:: Clean-Voided Midstream Performed By: #### A DDONUAPLUS, CUU #### [facility] [address] Glucose Ql (U) Normal Normal Normal [facility] Comment on above: Order Comment: Name Collection Type:: Clean-Voided Midstream Performed By: #### A DDONUAPLUS, CUU #### [place] [address] [place] Hyaline Casts,Urine None Normal 0-8 [facility] Comment on above: Order Comment: Name Collection Type:: Clean-Voided Midstream Result Comment: PERF ORMED BY: [place] [address] PATHOLOGIST FISCAL SERVICES DIRECTOR DEYSI MIRANDA M.D. Performed By: #### A DDONUAPLUS, CUU #### [place] [address] [place] Nitrite,Urine Positive High Negative [facility] Comment on above: Order Comment: Name Collection Type:: Clean-Voided Midstream Performed By: #### A DDONUAPLUS, CUU #### [place] [address] [place] Occult Blood,Urine Negative Normal Negative [facility] Comment on above: Order Comment: Name Collection Type:: Clean-Voided Midstream Result Comment: PERF ORMED BY: [place] [address] PATHOLOGIST FISCAL SERVICES DIRECTOR DEYSI MIRANDA M.D. Performed By: #### A DDONUAPLUS, CUU #### [place] [address] [place] Protein,Urine Negative Normal Negative [facility] Comment on above: Order Comment: Name Collection Type:: Clean-Voided Midstream Performed By: #### A DDONUAPLUS, CUU #### [place] [id number] [place] RBC,Urine None Seen Normal 0-4 [facility] Comment on above: Order Comment: Name Collection Type:: Clean-Voided Midstream Performed By: #### A DDONUAPLUS, CUU #### [address] Specificy [place],Urine 1.004 Normal 1.001-1.030 [facility] Comment on above: Order Comment: Name Collection Type:: Clean-Voided Midstream Performed By: #### A DDONUAPLUS, CUU #### [address] Urobilinogen,Urine Normal Normal Normal [facility] Comment on above: Order Comment: Name Collection Type:: Clean-Voided Midstream Performed By: #### A DDONUAPLUS, CUU #### [address] WBC,Urine 3-4 Normal 0-4 [facility] Comment on above: Order Comment: Name Collection Type:: Clean-Voided Midstream Performed By: #### A DDONUAPLUS, CUU #### [address] Epithelial cells.squamous [# /area] in Urine sediment by Automated countOrdered By: Belen Herrera on 05-09-2024 Epithelial cells.squamous Auto (Urine sed) [#/Area] N/A [facility] Erythrocytes [#/area] in Uri ne sediment by Automated countOrdered By: Belen Herrera on 05-09-2024 RBC Auto (Urine sed) [#/Area] None seen [HPF] 0-4 [facility] Glucose [Mass/volume] in Uri ne by Test stripOrdered By: Belen Herrera on 05-09-2024 Glucose Test strip (U) [Mass/Vol] Normal mg/dL Normal [facility] Hemoglobin Test strip Ql (U) Ordered By: Belen Herrera on 05-09-2024 Hemoglobin Ql (U) Negative Negative [facility] Hyaline casts [#/area] in Ur ine sediment by Automated countOrdered By: Belen Herrera on 05-09-2024 Hyaline casts Auto (Urine sed) [#/Area] None [LPF] 0-8 [facility] Ketones [Presence] in Urine by Test stripOrdered By: Belen Herrera on 05-09-2024 Ketones Ql (U) Negative Negative [facility] Comment on above: Order Comment: Name Collection Type:: Clean-Voided Midstream Performed By: #### A DDONUAPLUS, CUU #### [facility] [address] [place] [address] [place] Leukocyte esterase [Presence ] in Urine by Test stripOrdered By: Belen Herrera on 05-09-2024 Leukocyte esterase Test strip Ql (U) 1+ High Negative [facility] Comment on above: Order Comment: Name Collection Type:: Clean-Voided Midstream Performed By: #### A DDONUAPLUS, CUU #### [facility] [address] [place] [address] [place] Leukocytes [#/area] in Urine sediment by Automated countOrdered By: Belen Herrera on 05-09-2024 WBC Auto (Urine sed) [#/Area] 3-4 [HPF] 0-4 [facility] Neisseria gonorrhoeae DNA [P resence] in Specimen by CARLY with probe detectionOrdered By: Beeln Herrera on 05-09-2024 N. gonorrhoeae DNA CARLY+probe Ql (Unsp spec) Negative Negative [facility] Nitrite Test strip Ql (U)Ord ered By: Belen Herrera on 05-09-2024 Nitrite Ql (U) Positive High Negative [facility] Protein Test strip (U) [Mass /Vol]Ordered By: Belen Herrera on 05-09-2024 Protein (U) [Mass/Vol] Negative Negative [facility] Specific gravity Test strip (U) [Rel density]Ordered By: Belen Herrera on 05-09-2024 Specific gravity (U) [Rel density] 1.004 1.001-1.030 [facility] Trichomonas vaginalis DNA [P resence] in Specimen by CARLY with probe detectionOrdered By: Belen Herrera on 05-09-2024 T. vaginalis DNA CARLY+probe Ql (Unsp spec) Negative Negative [facility] Comment on above: Performed at: =[address], [place] [id number] Director: Myrna Espinoza MD, Phone: [phone] Urine Cultureon 05-09-2024 Bacteria identified Cx Nom (U) ORGANISM: Klebsiella pneumoniae (O:KLEPNE) [place] Count >100,000 Aerobic SHELLEY Charge ([id number]) --- [...] RESISTANT TO ALL B-LACTAM DRUGS. PERFORMED BY: [facility] [address] [place] [address] PATHOLOGIST FISCAL SERVICES DIRECTOR DEYSI MIRANDA M.D. Normal [facility] Comment on above: Performed By: #### A CHANTAL HINKLE #### [facility] [address] Urine appearanceOrdered By: Belen Herrera on 05-09-2024 Appearance (U) Clear Clear [facility] Comment on above: Order Comment: Name Collection Type:: Clean-Voided Midstream Performed By: #### A ARIN CUU #### [address] Urine culture routineOrdered By: Belen Herrera on 05-09-2024 Bacteria identified Cx Nom (U) Klebsiella pneumoniae Abnormal [facility] Urobilinogen Test strip (U) [Mass/Vol]Ordered By: Belen Herrera on 05-09-2024 Urobilinogen (U) [Mass/Vol] Normal mg/dL Normal [facility] XR shoulder LT min 2V*on XR shoulder LT min 2V* [facility] [place] [address] [place] [address] XRay Report Signed Patient: Severiano Taveras JR MR#: [id number] : 1985 Acct:[id number] Age/Sex: 39 / M ADM Date: 05/09/24 Loc: ER Room: Type: [facility] ER Attending Dr: Copies to: Belen [...] M Alcocer M.D.05/09/2024 10:57 AM Dictation Location: [place] [address] Transcribed By: JOSIAH 05/09/24 1057 Dictated By: uJan M Alcocer II, MD 05/09/24 1056 Signed By: 05/09/24 1057 Normal [facility] pH of Urine by Test stripOrd ered By: Belen Herrera on 05-09-2024 pH (U) 7.0 [pH] 5.0-9.0 [facility] Comment on above: Order Comment: Name Collection Type:: Clean-Voided Midstream Performed By: #### A CHANTAL HINKLE #### [address] Vital Signs Date Time Vital Sign Value Performing Clinician Napoleon lity 05-31-2024 13:28-0400 Body height 180.34 cm PHYSICIAN NO [facility] 05-31-2024 13:28-0400 Body temperature 99.1 [degF] PHYSICIAN NO [facility] 05-31-2024 13:28-0400 Body weight 78.35 kg PHYSICIAN NO [facility] 05-31-2024 13:28-0400 Diastolic blood pressure 84 mm[Hg] PHYSICIAN NO [facility] 05-31-2024 13:28-0400 Heart rate 120 /min PHYSICIAN NO [facility] 05-31-2024 13:28-0400 Respiratory rate 20 /min PHYSICIAN NO [facility] 05-31-2024 13:28-0400 SaO2% (BldA) [Mass fraction] 98 % PHYSICIAN NO [facility] 05-31-2024 13:28-0400 Systolic blood pressure 158 mm[Hg] PHYSICIAN NO [facility] 05-09-2024 09:10-0400 Body temperature 97.8 [degF] PHYSICIAN NO [facility] 05-09-2024 09:10-0400 Diastolic blood pressure 90 mm[Hg] PHYSICIAN NO [facility] 05-09-2024 09:10-0400 Heart rate 106 /min PHYSICIAN NO [facility] 05-09-2024 09:10-0400 Respiratory rate 18 /min PHYSICIAN NO [facility] 05-09-2024 09:10-0400 SaO2% (BldA) [Mass fraction] 98 % PHYSICIAN NO [facility] 05-09-2024 09:10040 Systolic blood pressure 134 mm[Hg] PHYSICIAN NO [facility] 05-09-2024 09:08040 Body height 180.34 cm PHYSICIAN NO [facility] 05-09-2024 09: Body weight 83.9 kg PHYSICIAN NO [facility] Encounters Encounter Date Encounter Type Care Provider Facility Start: 05-31-2024 End: 05-31-2024 Emergency department patient visit PHYSICIAN NO [facility] Work Phone: Start: 05-09-2024 End: 05-09-2024 Emergency department patient visit PHYSICIAN NO [facility] Work Phone: Procedures Date Procedure Procedure Detail Performing Clinician Start: 05-09-2024 Urine culture PHYSICIAN NO FAMILY Start: 05-09-2024 Plain X-ray of left shoulder PHYSICIAN NO FAMILY Plan of Treatment Date Care Activity Detail Author Start: 05-09-2024 Bacteria identified in Urine by Culture [facility] Start: 05-09-2024 [facility] Chlamydia trachomati s DNA [Presence] in Unspecified specimen by CARLY with probe detection [facility] Neisseria gonorrhoea e DNA [Presence] in Unspecified specimen by CARLY with probe detection [facility] Patient Education Muscle Strain ED Sexually Transmitted Infections ED [facility] Work Phone: Patient referral [facility] Work Phone: Trichomonas vaginali s DNA [Presence] in Unspecified specimen by CARLY with probe detection [facility] Payers Date Payer Category Payer Self-pay 2024 Unknown [id number] Medicaid [employer] [place] [employer] [id number] Unknown [id number] Social History Date Type Detail Facility Start: 05-09-2024 End: 05-31-2024 Tobacco smoking status NHIS Smoker (finding) [facility] Start: 1985 Sex Assigned At Male F [facility] Evaluation note Note Date & Type Note Facility Evaluation note No assessment information availa ble [facility] Work Phone: Hospital Discharge instructions Note [...] worsened left shoulder pain or other concerns [facility] Work Phone: Chief Complaint and Reason [...] and content) DATE CREATED AUTHOR 05/30/2024 [facility] FOR RECORDS PERTAINING TO PATIENTS [...] BE BASED ON THE PRIMARY CLINICAL RECORDS. [facility]. provides no warranty or guarantee of the accuracy or completeness of information in this document.
--- NOTE | 2024-06-01 09:17 | P.DS_ITS ---
DS: Providers Provider Date of admission: 05/31/24 19:08 Primary care physician: Non-Staff Physician, Consults: 05/31/24 18:17 Consult to Pulmonology Routine Consulting Provider: Stephen Morton Reason for consultation: Pneumomediastinum DS: Diagnosis Discharge Diagnosis (1) Pneumomediastinum: (2) Pneumothorax: Qualifiers: Pneumothorax type: spontaneous, secondary Qualified Code(s): J93.12 - Secondary spontaneous pneumothorax (3) Subcutaneous emphysema: Qualifiers: Encounter type: initial encounter Qualified Code(s): T79.7XXA - Traumatic subcutaneous emphysema, initial encounter (4) Marijuana abuse: (5) Cigarette nicotine dependence with nicotine-induced disorder: Plan Admission findings: Patient is elevated blood pressure, sinus tachycardia, leukocytosis, CT scan consistent with likely ruptured pulmonary bleb with now free air up in the mediastinum and up into the neck. No obstruction of the airway. Concern for progression. Place patient in ICU . Pneumomediastinum-stable at the time of discharge Leukocytosis likely demargination-follow as an outpatient Sinus tachycardia likely secondary to the above-improved at the time of discharge Blood pressure elevated. Has taken clonidine in the past. Improved at the time of discharge Admission status: Mediastinal free air and free air up into the neck. Concern for worsening condition up into the neck and possible acute pneumothorax. Place patient in the intensive care unit. Greater than 50% chance he will need to stay [address] patient inpatient. DS: Summary Hospital Course Hospital Course: Patient presented to an outside facility with a strange feeling in his neck and he was worried about infection screening evaluation there did not demonstrate anything and was discharged, presented here with the same symptoms found to have pneumomediastinum with free air up into the neck. No compromise of his trachea or esophagus. No evidence for esophageal tear. He was observed in the intensive care unit overnight for nitrogen washout with 6 L by nasal cannula. He is stable this morning. Heart rate is improved. No change in his pneumomediastinum. At this point recommendation from pulmonology would be okay for discharge just needs to follow-up with chest x-ray next week. [facility] with [facility] as well. No more vaping. Medications see list. Time Spent with Patient Time attestation: Total time spent providing and/or coordinating discharge services: Exam Constitutional Vital Signs, click to edit/add: Last Vital Signs Temp 97.8 F 06/01/24 08:00 Pulse 95 H 06/01/24 04:00 Resp 16 06/01/24 04:00 BP 124/78 06/01/24 08:07 Pulse Ox 100 06/01/24 08:20 O2 Del Method Room Air 06/01/24 08:00 O2 Flow Rate 6 06/01/24 05:55 Documenting provider has reviewed patient's vital signs: yes Common normals: no apparent distress Neck & C-Spine Common normals: full ROM and supple Other: Mild crepitus noted on exam-but seems improved Chest Common normals: inspection of chest normal; palpation of chest abnormal (Mild crepitus noted) Respiratory Common normals: normal respiratory effort and no retractions Cardio Common normals: regular rate and regular rhythm GI Common normals: Normal to inspection, nondistended, normoactive bowel sounds present, soft to palpation and non-tender DS: Data Data Completed and Pending Labs on day of discharge: Labs from last 24 hours 05/31/24 05/31/24 15:32 15:31 WBC 12.5 H RBC 5.35 Hgb 16.5 Hct 46.1 MCV 86.2 MCH 30.8 MCHC 35.8 H RDW 12.0 Plt Count 292 MPV 10.7 Neut % (Auto) 76.0 H Lymph % (Auto) 14.4 L [place] % (Auto) 8.7 Eos % (Auto) 0.1 L Baso % (Auto) 0.5 Neut # (Auto) 9.5 H Lymph # (Auto) 1.8 [place] # (Auto) 1.1 H Eos # (Auto) 0.0 Baso # (Auto) 0.1 Abs Immat Gran (auto) 0.04 H Imm/Tot Granulo (auto) 0.3 PT 11.4 INR 1.08 Sodium 140 Potassium 4.1 Chloride 98 Carbon Dioxide 28.0 Anion Gap 18.1 BUN 5.0 L Creatinine 1.05 Est GFR ( Amer) >60 Est GFR (Non-Af Amer) >60 BUN/Creatinine Ratio 4.8 Glucose 109 H Calcium 9.7 Total Bilirubin 1.1 H AST 20 ALT 29 Alkaline Phosphatase 102 Total Protein 7.8 Albumin 4.6 Globulin 3.2 Albumin/Globulin Ratio 1.4 Streptococcus Screen Negative Discharge Plan Discharge Disposition: Home, Self-Care Outpatient Diagnostics: XR chest 2V (Routine) Timeframe: 1 Week Facility: [facility] - Location: Patient Own Location Ordered By: Chay Horta Activity: increase activity as tolerated Diet: advance to your usual diet Print Language: Hebrew Patient Instructions: Spontaneous Pneumothorax (DC) Activity Restrictions/Additional Instructions: Return to ER for sudden shortness or breath or chest pain. Forms: Portal Instructions Follow Up Appointments: Chest Xray in 1 week Follow up with Primary Care /[facility] in a week Discharge Date/Time: 06/01/24 11:04
--- NOTE | 2024-06-01 10:59 | PC.NURSE ---
discharge instructions explained to pt. verbalized understanding. list of physicians accepting new pts given to pt per request. awaiting ride.
--- NOTE | 2024-06-01 11:10 | PC.NURSE ---
ambulated to exit with belongings. discharged to brother in private vehicle.
--- NOTE | 2024-06-02 13:52 | CM.DCFOLLOWU ---
1st attempt 06/02/24, no answer
--- NOTE | 2024-06-05 13:37 | CM.DCFOLLOWU ---
2nd attempt 06/05/24, no answer
--- NOTE | 2024-06-07 14:35 | CM.DCFOLLOWU ---
3rd attempt 06/07/24, no answer
== END 2024-06-01 11:04 | disposition home or self-care (01) | DRG 200 ==
LOC: ER 17:30 → ICU 06-01 06:22
PROVIDERS: Internal Medicine; Physician Assistant; Admitting Provider Family Medicine; Emergency Provider Emergency Medicine; Visit Provider Family Medicine
DX: J98.2 Interstitial emphysema (principal); J93.12 Secondary spontaneous pneumothorax; F17.210 Nicotine dependence, cigarettes, uncomplicated; F17.290 Nicotine dependence, other tobacco product, uncomplicated; F12.10 Cannabis abuse, uncomplicated; I10 Essential (primary) hypertension; R00.0 Tachycardia, unspecified; D72.829 Elevated white blood cell count, unspecified
CPT/HCPCS: 36415; 70491; 71045; 71250; 80053; 82103; 82104; 85025; 85610; 87070; 87880; 96374; 96375; 99285; J1100; J2060; Q9967